=== PATIENT | female | born 1975 | race Two or more races ===

== ENCOUNTER 2017-09-13 23:59 | Emergency (ER) | payer OTHER, SELFPAY ==
[~2017-09-13] VITALS: Ht 162.6 cm; Wt 69.5 kg
[2017-09-14] MEDS ORDERED: ONDANSETRON ODT 4 MG PO ONE (00:30)
[2017-09-14] MEDS ORDERED: LORazepam 1MG TABLET PO ONE (00:30)
[2017-09-14] MEDS ORDERED: METH10TA6 PO (00:39)
[2017-09-14 01:07] LABS: HEMOGLOBIN 14.6 g/dL (11.7-16.4); WHITE BLOOD COUNT 8.5 x10^3/uL (3.4-10)
[2017-09-14 01:13] LABS: BLOOD UREA NITROGEN 10 mg/dL (7-18)
[2017-09-14 01:18] LABS: IS PT STATUS REG ER OR PRE ER? YES
[2017-09-14 01:19] VITALS: BP 134/82
== END 2017-09-14 01:37 | disposition home or self-care (01) ==
LOC: ED 09-14 00:18
DX: R06.00 Dyspnea, unspecified (principal); F41.1 Generalized anxiety disorder
CPT/HCPCS: 36415; 71020; 80048; 82040; 84484; 84703; 85025; 93005; 99285; Q0162